=== PATIENT | female | born 1970 | race Two or more races ===

== ENCOUNTER 2021-05-26 08:30 | Day surgery (SDC) | payer OTHER | END 2021-05-26 14:35 | disposition home or self-care (01) | LOC: AMB-ENDOS 08:30 | PROVIDERS: ATTEND Surgery | DX: D12.0 Benign neoplasm of cecum (principal); D12.2 Benign neoplasm of ascending colon; Z20.822 Contact with and (suspected) exposure to COVID-19 ==